=== PATIENT | female | born 1985 ===

== ENCOUNTER 2017-05-15 21:27 | Emergency (ER) | payer SELFPAY ==
[2017-05-15 23:00] VITALS: BP 115/81
[2017-05-16] MEDS ORDERED: TYLENOL PO ONE (00:20)
== END 2017-05-16 02:35 | disposition left against medical advice (07) ==
LOC: ED 21:27
DX: S05.90XA Unspecified injury of unspecified eye and orbit, initial encounter (principal); Z53.21 Procedure and treatment not carried out due to patient leaving prior to being seen by health care provider; X58.XXXA Exposure to other specified factors, initial encounter; Y93.9 Activity, unspecified; Y92.89 Other specified places as the place of occurrence of the external cause; Y99.9 Unspecified external cause status
CPT/HCPCS: 36415; 84703